=== PATIENT | female | born 1955 | race African-American/Black ===

== ENCOUNTER 2018-10-24 13:54 | Outpatient (CLI) | payer OTHER ==
--- NOTE | 2018-10-24 14:46 | MMO ---
Bilateral MAMMO Bilat Screen DDI. CLINICAL HISTORY: Patient is 62 years old and is seen for screening. The patient has the following family history of breast cancer: maternal aunt, malignant (generic). The patient has no personal history of cancer. VIEWS: The views performed were: bilateral craniocaudal and bilateral mediolateral oblique. FILMS COMPARED: The present examination has been compared to prior imaging studies performed at [facility] on 07/03/2008 and 12/25/2014, and at [facility] on 01/23/2015. This study has been interpreted with the assistance of computer-aided detection. MAMMOGRAM FINDINGS: There are scattered fibroglandular densities. There are stable benign appearing calcifications seen in both breasts. Stable benign appearing nodular densities are again seen in each breast. There are no suspicious masses, suspicious calcifications, or new areas of architectural distortion. IMPRESSION: THERE IS NO MAMMOGRAPHIC EVIDENCE OF MALIGNANCY. A ROUTINE FOLLOW-UP MAMMOGRAM IN 1 YEAR IS RECOMMENDED. ACR BI-RADS Category 2 - Benign finding MAMMOGRAPHY NOTE: 1. A negative mammogram report should not delay a biopsy if a dominant of clinically suspicious mass is present. 2. Approximately 10% to 15% of breast cancers are not detected by mammography. 3. Adenosis and dense breasts may obscure an underlying neoplasm.
== END 2018-10-24 13:55 | disposition home or self-care (01) ==
LOC: SCSMAMMO 13:54
PROVIDERS: ATTEND Obstetrics & Gynecology
DX: Z12.31 Encounter for screening mammogram for malignant neoplasm of breast (principal); Z80.3 Family history of malignant neoplasm of breast
CPT/HCPCS: 77067

== ENCOUNTER 2019-06-05 13:04 | Emergency (ER) | payer OTHER ==
[2019-06-05] MEDS ORDERED: HYDROcodone/Acetaminophen 5/325 mg Tablet ONE (14:04)
--- NOTE | 2019-06-05 15:01 | RAD ---
PA CHEST AND LEFT RIBS 4 VIEWS: Date: 06/05/2019 HISTORY: Fall with left rib injury. FINDINGS: Lungs appear clear on the PA chest. No evidence of rib fracture. IMPRESSION: No evidence of left rib fracture identified. POS: [facility]
== END 2019-06-05 15:37 | disposition home or self-care (01) ==
LOC: ERS 13:04
DX: S20.212A Contusion of left front wall of thorax, initial encounter (principal); H92.03 Otalgia, bilateral; I10 Essential (primary) hypertension; W01.0XXA Fall on same level from slipping, tripping and stumbling without subsequent striking against object, initial encounter

== ENCOUNTER 2020-03-14 13:02 | Outpatient (CLI) | payer OTHER ==
--- NOTE | 2020-03-14 13:44 | MMO ---
Bilateral MAMMO Bilat Screen DDI. CLINICAL HISTORY: Patient is 64 years old and is seen for screening. The patient has the following family history of breast cancer: maternal aunt, malignant (generic). The patient has no personal history of cancer. VIEWS: The views performed were: bilateral craniocaudal and bilateral mediolateral oblique. FILMS COMPARED: The present examination has been compared to prior imaging studies performed at [facility] on 07/03/2008 and 12/25/2014, at [facility] on 10/24/2018, and at [facility] on 01/23/2015. This study has been interpreted with the assistance of computer-aided detection. MAMMOGRAM FINDINGS: There are scattered fibroglandular densities. There are stable benign appearing calcifications seen in both breasts. Nodularity is stable. There are no suspicious masses, suspicious calcifications, or new areas of architectural distortion. IMPRESSION: THERE IS NO MAMMOGRAPHIC EVIDENCE OF MALIGNANCY. A ROUTINE FOLLOW-UP MAMMOGRAM IN 1 YEAR IS RECOMMENDED. ACR BI-RADS Category 2 - Benign finding MAMMOGRAPHY NOTE: 1. A negative mammogram report should not delay a biopsy if a dominant of clinically suspicious mass is present. 2. Approximately 10% to 15% of breast cancers are not detected by mammography. 3. Adenosis and dense breasts may obscure an underlying neoplasm. Reported by: JAM SALAZAR MD Electonically Signed: [id number]
--- NOTE | 2020-03-15 07:56 | BD ---
DEXA BONE DENSITOMETRY: (Dual energy x-ray absorptiometry) DATE: 03/14/2020 HISTORY: 64-year old white female for age-related, post-menopausal, osteoporosis screening. Weight: 233 lbs Height: 70 in. Age of menopause: 45 COMPARISON: None available. FINDINGS: The bone mineral density (BMD) is given in grams per square centimeter (g/cm2): LUMBAR SPINE: BMD (g/cm^2) T score Z score L1: 0.969 -0.2 1.3 L2: 0.895 -1.2 0.4 L3: 1.050 -0.3 1.4 L4: 1.125 0.6 2.3 Total: 1.019 -0.3 1.4 HIP: BMD (g/cm^2) T score Z score Femoral neck: 0.735 -1.0 0.4 Total: 0.963 0.2 1.3 IMPRESSION: 1.) The mean bone mineral density of the lumbar spine is normal. Fracture risk is not increased. 2) The bone mineral density of the femoral neck is normal. Fracture risk is not increased.
== END 2020-03-14 13:03 | disposition home or self-care (01) ==
LOC: BICMAMMO 13:02
PROVIDERS: ATTEND Family Medicine
DX: Z12.31 Encounter for screening mammogram for malignant neoplasm of breast (principal); Z13.820 Encounter for screening for osteoporosis; Z78.0 Asymptomatic menopausal state; Z80.3 Family history of malignant neoplasm of breast
CPT/HCPCS: 77067; 77080

== ENCOUNTER 2021-05-08 15:22 | Outpatient (CLI) | payer OTHER | END 2021-05-08 15:23 | disposition home or self-care (01) | LOC: BICMAMMO 15:22 | PROVIDERS: ATTEND Family Medicine | DX: Z12.31 Encounter for screening mammogram for malignant neoplasm of breast (principal); Z80.3 Family history of malignant neoplasm of breast | CPT/HCPCS: 77063; 77067 ==

== ENCOUNTER 2022-07-03 08:51 | Outpatient (CLI) | payer MEDICARE, OTHER | END 2022-07-03 08:52 | disposition home or self-care (01) | LOC: BICMAMMO 08:51 | PROVIDERS: ATTEND Family Medicine | DX: Z12.31 Encounter for screening mammogram for malignant neoplasm of breast (principal); Z80.3 Family history of malignant neoplasm of breast | CPT/HCPCS: 77063; 77067 ==